=== PATIENT | female | born 1975 | race Caucasian/White ===

== ENCOUNTER → 2017-03-15 | Outpatient (CLI) | payer MEDICARE, MEDICAID ==
[~2017-03-15] MED LIST: AMITRIPTYLINE 550 MG; BUSPIRONE HCL10 M1; CELEXA40 MG; DILTIAZEM HYDR180 MG; ESTRADIOL0.5 MG; HYDROXYZINE HYD25 M1; LEVO-T25 MCG; NEURONTIN600 M1; PRINIVIL10 M1; RANITIDINE HCL150 MG; SUNMARK OMEPRAZ20 MG; SYNTHROID0.025 MG; TIZANIDINE HCL4 MG; VITAMIN D350000 UNIT; WELLBUTRIN XL300 M1; ZOCOR20 MG
[2017-03-15 08:59] LABS: BUN 14 mg/dL (7-18)
[2017-03-15 09:06] LABS: GFR (ESTIMATED) 61 ML/MIN (59-)
--- NOTE | 2017-03-16 08:39 | RADIOLOGY REPORT PS360 ---
MRI-LOW EXT OTH THN JNT W/WOLT MRI left foot HISTORY: LEFT PERONEAL TENDONITIS pain at left foot 3 months pain is lateral around mid foot.: 41 years: Female Ordering Physician: CARLITA DIAS DPM TECHNIQUE: Multiplanar multi sequence imaging performed on 1.5 [facility] Pre and postcontrast imaging performed. 22 mL ProHance used for the postcontrast images COMPARISON :Plain films of left foot 11/30/2016 FINDINGS Peroneus longus and brevis tendons appear overall intact : Peroneus longus tendon is unremarkable with normal signal. Peroneus brevis tendon on appears intact leading to the base of the fifth metatarsal. Only Question perhaps some very slightly costa signal on the sagittal and oblique axial sequences as it passes lateral to the calcaneus. This is unimpressive and may be related to be due to magic angle features rather than reflection of a significant tendinopathy.. Particularly since it is less evident on the coronal T1 image If focally tender here it could reflect extremely mild tendinopathy and possibly minor old previous interstitial injury The STIR and T2 signals of this tendon appear unremarkable.. No edema or inflammation elsewhere the lateral mid and hindfoot along the course of these tendons Tibialis posterior tendon is intact. However I would note slight additional low signal area just adjacent to this tendon at medial aspect this is sustentaculum robin.... Doubt of current significance of lateral pain, but but curious incidental observation. Initially question there may be an accessory ossicle associated here but none evident on Plain films from -:15- 17, to account for focal low signal on appearance. Slight increased fluid at the ankle joint most evident at lateral joint and specifically note fluid at the anterolateral aspect ankle joint, anteriorly overlying the distal fibula.. The anterior talofibular ligament . & Calcaneofibular ligament appears intact.. Posterior talofibular ligaments appear intact bones in this region show no bone edema or fracture. The dome of talus appears smooth intact. No osteochondral defects on either side of the ankle joint evident Postcontrast images: show no prominent areas of enhancement. No enhancement along the peroneus tendons. Only Borderline enhancement the anterior aspect of ankle joint, were we encounter the slight increase fluid. Last wall there is question of some mild enhancement at the dorsal soft tissues overlying the fifth MTP joint. There is bright signal here on the precontrast T1 which I favor reflects artifact, due to this area at the edge of the [id number],/field inhomogeneous however on the coronal views are does seem to be some very subtle possible enhancement here. Clinical correlation required. IMPRESSION 1. Peroneus longus tendons appear intact. 2. Peroneus brevis tendon normal course with question of very subtle costa signal where it passes along the lateral aspect of the calcaneus. Questionable significance. Tend to favor may merely magic angle artifact but difficult to exclude extremely minor peroneus brevis tendinopathy if focally tender here. .. -No disruption/no definitive tendinopathy. No edema associated along the course of these tendons. 3. More notable is the Slight increase fluid at lateral ankle joint, most evident anterior lateral aspect joint overlying anterior aspect of fibula.... Question Borderline enhancement in this region, could reflect a localized synovitis?? The ligaments appear intact-: Specifically Anterior talofibular ligament and calcaneofibular ligament appear intact. 4. Last wall question Slight increased signal of soft tissues dorsal to the head of fifth metatarsal and fifth MTP joint more evident postcontrast. Requires clinical correlation.. I tend to favor this is mainly field artifact at the edge of this field of view, but cannot exclude minor enhancement here postcontrast. Again this area requires clinical correlation to exclude localized inflammation 5. Other minor observations in text
== END ==
LOC: RAD 08:20
PROVIDERS: Podiatrist
DX: M76.72 Peroneal tendinitis, left leg (principal)
CPT/HCPCS: A9576